=== PATIENT | female | born 1950 | race Hispanic/Latino ===

== ENCOUNTER → 2020-04-08 | Outpatient (CLI) | payer MEDICARE | END | disposition home or self-care (01) | LOC: SHCH 12:49 | PROVIDERS: ATTEND Internal Medicine | DX: R00.2 Palpitations (principal) | CPT/HCPCS: 93306; 93356 ==

== ENCOUNTER → 2022-10-19 | Outpatient (CLI) | payer OTHER, MEDICARE ==
[2022-10-19 22:03] VITALS: PULSE 58; RESP 20
[2022-10-19 22:30] VITALS: PULSE 58; RESP 14
[2022-10-19 23:00] VITALS: PULSE 52; RESP 12
[2022-10-19 23:30] VITALS: PULSE 56; RESP 12
[2022-10-20] VITALS (11 sets, daily range): PULSE 50–58; RESP 8–16
== END | disposition home or self-care (01) ==
LOC: SLP 20:24
PROVIDERS: ATTEND Internal Medicine
DX: G47.33 Obstructive sleep apnea (adult) (pediatric) (principal); R06.02 Shortness of breath
CPT/HCPCS: 95810

== ENCOUNTER → 2022-11-27 | Outpatient (CLI) | payer OTHER, MEDICARE ==
[2022-11-27] VITALS (7 sets, daily range): PULSE 49–51; RESP 9–15
[2022-11-28] VITALS (13 sets, daily range): PULSE 47–61; RESP 8–16
== END | disposition home or self-care (01) ==
LOC: SLP 20:39
PROVIDERS: ATTEND Internal Medicine
DX: G47.33 Obstructive sleep apnea (adult) (pediatric) (principal)
CPT/HCPCS: 95811